=== PATIENT | female | born 1980 | race Caucasian/White ===

== ENCOUNTER 2017-03-29 07:47 | Inpatient (IN) | payer OTHER ==
[~2017-03-29] VITALS: Ht 165.1 cm; Wt 113.4 kg
[2017-03-29 09:08] LABS: ABSOLUTE BASOPHIL COUNT 0 /CUMM (0.0-0.2); ABSOLUTE EOSINOPHIL COUNT 0.2 /CUMM (0.0-0.7); ABSOLUTE LYMPH COUNT 2.3 /CUMM (1.2-3.4); ABSOLUTE MONOCYTE COUNT 0.6 /CUMM (0.10-0.60); BASOPHIL % 0.3 % (0.0-2.0); EOSINOPHIL % 1.3 % (0-5); GRANULOCYTE % 75.9 % (42.2-75.2); HEMATOCRIT 39.9 % (37-47); MEAN CORPUSCULAR HGB 29.9 PG (27.0-31.0); MEAN CORPUSCULAR HGB CONC 33.4 G/DL (33.0-37.0); MEAN CORPUSCULAR VOLUME 89.6 FL (81.0-99.0); MEAN PLATELET VOLUME 8.7 FL (7.4-10.4); PLATELET COUNT 247 /CUMM (130-400); RBC DISTRIBUTION WIDTH 15.1 % (11.5-14.5); RED BLOOD CELL CT 4.45 /CUMM (4.20-5.40); WHITE BLOOD CELL COUNT 13.2 /CUMM (4.8-10.8)
--- NOTE | 2017-03-29 10:35 | History & Physical ---
General Information and HPI MD Statement: I have seen and personally examined NORMAN BOWSER and documented this H&P. The patient is a 37 year old female at [] weeks and [] days gestation who presented with a chief complaint ofLABOR []. History of Present Illness: 37-year-old 5 para 3013 presents to [facility] from Dr. 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 No Contractions: To 3 minutes Patient for Induction? No Physical Exam: Obese white female HEENT anicteric Lungs clear Abdomen obese estimated weight 3000 g pelvic 6-7 cm 90% 0 station extremities +1 edema Physical Exam Skin No Rashes HEENT PERRLA, EOMI Labs Blood Type & Rh: ab Antibody Screen: Positive Hct/Hgb & Platelets #1: 12/36/to 80 Hct/Hgb & Platelets #2: 12/38/280 Rubella: im VDRL #1: nr nr VDRL #2: nr HbsAg: neg HIV #1: neg HIV #2 neg 1 Hr P Group B Strep: neg Initial Ultrasound: Normal Anatomy Ultrasound: Normal Genetic Testing: Normal Assessment/Plan Assessment/Plan: Assessment is term nonreassuring tracing previous section The plan is for antibiotics and an emergent section under general anesthesia As Ranked By This Provider Problem List: 1. Core Measures/Miscellaneous Venous Thromboembolism VTE Risk Factors: / VTE Contraindications: No Contraindications VTE Diagnosis: No Beta Harris Is Beta Harris a Home Med? No Antibiotics Is Patient on Antibiotics? No
--- NOTE | 2017-03-29 10:38 | Operative Report ---
Operative/Inv Procedure Report Surgery Date: 03/29/17 Name of Procedure: Repeat low flap transverse section via Pfannenstiel skin incision lysis of adhesions Pre-Operative Diagnosis: Term previous section nonreassuring heart tracing secondary to bradycardia to the 60s Post-Operative Diagnosis: Same thick meconium Estimated Blood Loss: 500 Surgeon/Financial Services Intern: Kelly Coats M.D. and Zara Chauhan M.D. Anesthesia: general endotracheal tube Operative/Procedure Note Note: Procedure note patient was taken the operating room placed in supine position after adequate induction general anesthesia via endotracheal tube the abdomen had been prepped and draped in sterile fashion through an old Pfannenstiel skin incision skin was cut carried down to rectus fascia which was cut in curvilinear fashion I direction using curved males peritoneal cavity was entered high into the abdomen the low blade the [place] was placed and lower and incision the visceral peritoneum of the uterus was dissected anteriorly the bladder blade was replaced to protect the bladder in the lower uterine segment the uterus was nicked entered with the back of knife dissected bluntly as well as sharply I at this point the was delivered over the abdominal wall on with the [place] anesthesia infant was in deep transverse arrest cord was doubly clamped and cut and the was handed to coil spring assembler was waiting delivering to aid in resuscitation placenta was delivered it was detached was sent to pathology the uterus was wiped clean with 3 wet dry laps to ensure was free of adherent membranes intravenous Pitocin as well as intramyometrial Pitocin was used to aid in uterine contractility at this point the uterus was oversewn running locking suture of 0 was imbricated running locking suture of 0 interrupted figure-of- eight's were used for hemostasis at the end the case the abdomen was irrigated comes amounts warm sounds are clear peritoneum was reapproximated after the incision had been reexamined and resutured for hemostasis the fascia was reapproximated to continue sutures #1 suture the Bovie coagulation of the subcutaneous tissue was performed a pressure dressing was applied after the skin was reapproximated using danay at the end of the case the counts correct urine was clear was extubated and transferred recovery room awake alert and informed of the baby status Findings: Viable female three-vessel cord and thick meconium 30% abruption otherwise normal anatomy
[2017-03-29 21:12] VITALS: BP 110/62
[2017-03-30 08:51] LABS: ABSOLUTE BASOPHIL COUNT 0 /CUMM (0.0-0.2); ABSOLUTE EOSINOPHIL COUNT 0.1 /CUMM (0.0-0.7); ABSOLUTE MONOCYTE COUNT 0.6 /CUMM (0.10-0.60); MEAN PLATELET VOLUME 8.6 FL (7.4-10.4); PLATELET COUNT 217 /CUMM (130-400)
--- NOTE | 2017-03-30 08:58 | PN- Post Delivery/GYN ---
Subjective Subjective: mariamires early discharge home; states that she has tolerated reg diet and passes flatus and is ambulating Review of Systems: as above Objective Last 24 Hrs of Vital Signs/I&O Vital Signs Date Time Temp Pulse Resp B/P B/P Pulse O2 O2 Flow FiO2 Mean Ox Delivery Rate 03/29 2210 Room Air Room Air 03/29 2112 110/62 Intake & Output 03/30 1600 03/30 0800 03/30 0000 Intake Total Output Total Balance Patient 250 lb Weight Physical Exam: incision c/d/i ext nt Assessment/Plan Assessment/Plan s/p r c/s pod1 oob d/c marrufo possible discharge later gracy Problem List: 1.
[2017-03-30 09:40] LABS: ABSOLUTE GRANULOCYTE CT 8.2 /CUMM (1.4-6.5); ABSOLUTE LYMPH COUNT 2.6 /CUMM (1.2-3.4); BASOPHIL % 0.3 % (0.0-2.0); EOSINOPHIL % 0.7 % (0-5); GRANULOCYTE % 71.3 % (42.2-75.2); MEAN CORPUSCULAR VOLUME 91.3 FL (81.0-99.0); RBC DISTRIBUTION WIDTH 15.3 % (11.5-14.5); WHITE BLOOD CELL COUNT 11.5 /CUMM (4.8-10.8)
[2017-03-30 10:33] LABS: RED BLOOD CELL CT 3.33 /CUMM (4.20-5.40)
[2017-03-30 10:34] LABS: HEMATOCRIT 30.4 % (37-47)
[2017-03-30] MEDS ORDERED: PERCOCET 5-3251 EACH PO (17:37)
[2017-03-30] MEDS ORDERED: IBUPROFEN800 M1 PO (17:37)
== END 2017-03-30 18:00 | DRG 765 ==
LOC: CBCO 07:47 → GNO 08:22
PROVIDERS: Specialist; ADMIT Obstetrics & Gynecology
PROC: 10D00Z1 Extraction of Products of Conception, Low, Open Approach (ICD-10-PCS; principal; 2017-03-29)
DX: O34.211 Maternal care for low transverse scar from previous cesarean delivery (principal); O45.93 Premature separation of placenta, unspecified, third trimester; N85.8 Other specified noninflammatory disorders of uterus; O76 Abnormality in fetal heart rate and rhythm complicating labor and delivery; Z3A.40 40 weeks gestation of pregnancy; Z37.0 Single live birth
CPT/HCPCS: GNOS; 80307; 81001; 87086; 88307; 88312; J0690; J1170; J1650; J2210; J7120